=== PATIENT | female | born 1980 | race Two or more races ===

== ENCOUNTER → 2024-03-15 15:12 | Outpatient (REF) | payer OTHER, SELFPAY | LOC: HWWDC 15:12 | PROVIDERS: ATTENDING PHYSICIAN Family Medicine | DX: Z12.31 Encounter for screening mammogram for malignant neoplasm of breast (principal) | CPT/HCPCS: 77063; 77067 ==

== ENCOUNTER 2024-12-16 17:41 | Emergency (ER) | payer OTHER, SELFPAY ==
[2024-12-16 17:51] VITALS: BP 130/75
--- NOTE | 2024-12-16 17:54 | ED.GENMED ---
ED Provider Triage
<Rubens Rios PA-C - Last Filed: 12/16/24 17:55>
-
Patient seen by provider in Triage?: Seen in Triage
Attestation: A medical screening examination has been initiated by a qualified medical provider. Based on the assessment performed at this time, it has been determined that an emergent medical condition may exist and the patient has been informed
that further medical evaluation and possible additional diagnostic testing may be needed.
HPI: Left calf pain that started yesterday without any trauma. Family history of DVT and PE. Patient concern for possible DVT so came to the ER for further evaluation. Denies any focal weakness or numbness. No color changes. Patient is
otherwise stable and ambulatory. Ultrasound ordered for further assessment.
GENERAL: Alert , in no apparent distress
EYE: No visual abnormalities.
NECK: Trachea midline
ENT: No visible abnormalities.
LUNGS: No acute respiratory distress
NEUROLOGICAL: Alert and oriented
SKIN: Skin intact. No visible changes.
MUSCULOSKELETAL: Moving extremities normally
PSYCH: Normal and appropriate interaction.
This is a medical evaluation conducted in person to initiate diagnostic evaluation and provide initial therapeutics. Please see further documentation by the treating clinician.
History of Present Illness
<Rubens Rios PA-C - Last Filed: 12/16/24 17:55>
General
Chief Complaint: DVT/Possible Blood Clot
Time Seen by Provider: 12/16/24 18:55
<MILTON Damon - Last Filed: 12/16/24 20:02>
General
Source: patient
Exam Limitations: none
History of Present Illness
History of Present Illness:
This is a 44 year old female that comes in with c/o left calf pain. States that this started yesterday afternoon. States that her sister and her dad both have a history or PE and DVT and they were a little older then her. Denies any falls or
injury. Denies any long car, plane of train rides. States that she does sit for about 2 hours at a time to work. Denies any fever, chills, chest pain, SOB. abd pain, nausea, vomiting, diarrhea, headache, dizziness.
Past History
<MILTON Damon - Last Filed: 12/16/24 20:02>
Past History
ED Past Medical History: Hypothyroidism
ED Past Surgical History: Cholecystectomy and Tonsilectomy
Social History
Tobacco: Non-smoker
Alcohol: Occasional
Personal:
Living: with family
Employment: Employed
Review of Systems
<MILTON Damon - Last Filed: 12/16/24 20:02>
Review of Systems
All Other Systems: ROS reviewed and negative except as documented in HPI and ROS
Constitutional: Reports no symptoms; Denies fever or chills
EENT: Reports no symptoms
Respiratory: Reports no symptoms; Denies cough or trouble breathing
Cardiac: Reports no symptoms; Denies chest pain
ABD/GI: Reports no symptoms; Denies abdominal pain, nausea, vomiting or diarrhea
: Reports no symptoms; Denies dysuria, frequency or urgency
Musculoskeletal: Reports other (Left calf pain)
Skin: Reports no symptoms
Neurological: Reports no symptoms; Denies dizzy or headache
Psychiatric: Reports no symptoms
Phy Exam
<MILTON Damon - Last Filed: 12/16/24 20:02>
General Physical Exam
General Presentation: well appearing and no apparent distress
General age: appears stated age
General Skin: warm and dry
General Habitus: normal
General Mental: alert
General Hydration: appears well hydrated
ENT Exam
ENT Exam: TM's normal, pharynx normal and neck supple
Eye Exam
Eye Exam: EOMI
Cardiovascular Exam
Cardiovascular Exam: regular rate/rhythm, no edema, no murmur and normal peripheral pulses
Pulmonary Exam
Pulmonary Exam: lungs clear, no respiratory distress, no rales, chest non tender, no crackles, no rhonchi, no wheezing and no cough
Musculoskeletal Exam
Musculoskeletal Exam: full ROM and other (Negative for edema of tenderness of the left calf)
Skin Exam
Skin Exam: normal color, warm/dry, no rash and no petechia
Psychiatric Exam
Psychiatric Exam: normal mood/affect
Course
<Rubens Rios PA-C - Last Filed: 12/16/24 17:55>
Orders/Labs/Results
Orders:
Orders
12/16/24 17:54
US Periph Venous LOWER Ext LT Urgent
Comment:
Reason For Exam: pain, edema, family hx DVT
Vital Signs
Initial and Last Documented VS:
Initial Vital Signs
Temp Pulse Resp BP Pulse Ox
98.1 F 65 20 130/75 98
12/16/24 17:51 12/16/24 17:51 12/16/24 17:51 12/16/24 17:51 12/16/24 17:51
Last Documented Vital Signs
Temp Pulse Resp BP Pulse Ox
98.1 F 65 20 130/75 99
12/16/24 17:51 12/16/24 17:51 12/16/24 17:51 12/16/24 17:51 12/16/24 18:45
<MILTON Damon - Last Filed: 12/16/24 20:02>
Orders/Labs/Results
Orders:
Orders
12/16/24 17:54
US Periph Venous LOWER Ext LT Urgent
Comment:
Reason For Exam: pain, edema, family hx DVT
Vital Signs
Initial and Last Documented VS:
Initial Vital Signs
Temp Pulse Resp BP Pulse Ox
98.1 F 65 20 130/75 98
12/16/24 17:51 12/16/24 17:51 12/16/24 17:51 12/16/24 17:51 12/16/24 17:51
Last Documented Vital Signs
Temp Pulse Resp BP Pulse Ox
98.1 F 65 20 130/75 99
12/16/24 17:51 12/16/24 17:51 12/16/24 17:51 12/16/24 17:51 12/16/24 18:45
<Ming Shaw DO - Last Filed: 12/16/24 20:03>
Orders/Labs/Results
Orders:
Orders
12/16/24 17:54
US Periph Venous LOWER Ext LT Urgent
Comment:
Reason For Exam: pain, edema, family hx DVT
Vital Signs
Initial and Last Documented VS:
Initial Vital Signs
Temp Pulse Resp BP Pulse Ox
98.1 F 65 20 130/75 98
12/16/24 17:51 12/16/24 17:51 12/16/24 17:51 12/16/24 17:51 12/16/24 17:51
Last Documented Vital Signs
Temp Pulse Resp BP Pulse Ox
98.1 F 65 20 130/75 99
12/16/24 17:51 12/16/24 17:51 12/16/24 17:51 12/16/24 17:51 12/16/24 18:45
<MILTON Damon - Last Filed: 12/16/24 20:02>
MDM/Problems Addressed
Differential Diagnosis Includes:
DVT, Musculoskeletal pain.
MDM/Problems Addressed:
This is a 44 year old female that comes in with c/o left calf pain. States that her dad and sister both have a history of DVT and PE's and she was a little nervous.
Will get US.
Back to see patient. Explained that her US is negative for DVT. Explained that with her family history she needs to be drinking 8-8oz glasses daily. Encouraged patient to get up and move around every hour to stretch her legs. Follow up with the
family doctor. Return with any concerns.
Chronic conditions affecting care:
NA
Acute Exacerbation and/or Progression of Chronic Illness:
NA
<MILTON Damon - Last Filed: 12/16/24 20:02>
*Radiology
Radiology exam reviewed: radiology read reviewed (US=NO evidence of deep venous thrmbosis of the left lower extremity. )
*Pulse Oximetry
Patient hypoxic: no
*EKG
Interpreted by ED Provider?: NA
Rate: EKG- N/A
*[employer] [employer] Interpretation
Rate: [employer] [employer] [facility]- N/A
*Critical Care Note
Total Time (30-74mins, 75-104mins- exclusive of procedures): Not Applicable
ED Attending Note
<Rubens Rios PA-C - Last Filed: 12/16/24 17:55>
-
Portions of this chart may have been created with voice recognition software.� Occasional wrong word or��sound alike� substitutions may have occurred due to the inherent limitations of voice recognition software.
<Ming Shaw DO - Last Filed: 12/16/24 20:03>
ED Attending Note
Patient seen and examined by attending physician: Yes
I performed a history and physical exam of patient and discussed management with resident, I reviewed resident's note and agree with documented findings and plan of care.: Yes
ED Attending Note:
I agree with Roxy's note
44-year-old female presents complaining of left calf pain starting yesterday. Patient is unaware of any injuries or trauma. She was concerned because she has a family history of DVTs and PEs. She denies any chest pain or shortness of breath.
General: Awake, Alert, Oriented X3. No acute distress.
Vitals: unremarkable
Head: Atraumatic
Eyes: Pupils equal, EOMI
Throat: Airway intact, no exudates
Neck: Trachea midline
Neuro: Nonfocal
Skin: Warm, dry, no rash
Extremities: pulses equal b/l, no edema
DVT study is negative. Suspect muscle strain. Stable for discharge
Discharge Plan
Departure
Patient Disposition: Home (Routine Discharge)
Date of Disposition: 12/16/24
Time of Disposition: 19:57
Patient with high blood pressure during this ER visit?: Yes
Condition: Good
Covid-19: Not Applicable
Discharge Problem:
Musculoskeletal leg pain
Instructions: BLOOD PRESSURE, Musculoskeletal Pain
Referrals:
Job Mcmanus, [Family Provider] - Call in 1-3 days for appt
Activity Restrictions/Additional Instructions:
As discussed, your Ultrasound is negative for any blood clots. Please increase your water intake to 8-8oz glasses daily. Please get up and move around every hour after sitting at work. Follow up with the family doctor for further evaluation. You may
use Tylenol or Ibuprofen as needed for any discomfort. IF YOU HAVE ANY OTHER CONCERNS PLEASE RETURN TO THE EMERGENCY ROOM.
Interventions
Interventions:
*Risk Screen - Suicide Last Done: 12/16/24 18:45
*General Assessment Last Done: 12/16/24 17:51
*Neglect/Abuse Screening Last Done: 12/16/24 18:45
ED- Fall Risk Assessment Last Done: 12/16/24 18:45
*ED COVID-19 Vaccine History Last Done: 12/16/24 18:45
ED- Cardiac Assessment Last Done: 12/16/24 18:45
ED- Pulmonary Assessment Last Done: 12/16/24 18:45
ED-Peripheral Vascular Assessment Last Done: 12/16/24 18:45
ED-Skin Assessment Last Done: 12/16/24 18:45
Discharge Date and Time
Print Language: THAI
[2024-12-16 18:44] VITALS: BMI 36.4
[2024-12-16 20:07] VITALS: BP 135/61
== END 2024-12-16 20:08 | disposition home or self-care (01) ==
LOC: EMR 17:41
PROVIDERS: EMERGENCY PHYSICIAN Emergency Medicine; FAMILY PHYSICIAN Family Medicine
DX: M79.662 Pain in left lower leg (principal); E03.9 Hypothyroidism, unspecified; Z90.49 Acquired absence of other specified parts of digestive tract
CPT/HCPCS: 99284; 93971